=== PATIENT | female | born 1955 | race Caucasian/White ===

== ENCOUNTER 2023-12-31 10:39 | Outpatient (AMB) | payer MEDICARE, SELFPAY ==
--- NOTE | 2023-12-31 10:42 | MHC.OFFWIV ---
Intake Vital Signs 12/31/23 10:43 Height 4 ft 11 in BP 122/74 Blood Pressure Location Lt brachial Position Sitting Pulse 63 Pulse Source Pulse Oximeter Temp 96.6 F L Temp Source Temporal Artery Scan Pulse Oximetry (%) 98 Oxygen Delivery Method Room Air Intake Visit Reasons: EP Faint this morning (lobby) Intake Note: pt is here today for faint this morning Patient Tobacco Use Status: Never used Tobacco Allergies No Known Allergies Allergy (Verified 12/31/23 10:46) Do you need a note to return to daycare/school/sports/work: No HPI EP Faint this morning (lobby) HPI Details 68 yr old female presents to the office for a sick visit. Patient felt faint and weak at [employer] this morning. Also felt sweaty. After the mass, drank a glass of water and went home. Her sx have resolved. Come to the office for a checkup and evaluation. She reports, her sx have resolved except for a dull headache. Able to walk with no difficulty. Pt takes raloxifine for osteoporsosis. PFSH Social History Patient Tobacco Use Status: Never used Tobacco Physical Exam Vital Signs: Last Vital Signs Temp 96.6 F L 12/31/23 10:43 Pulse 63 12/31/23 10:43 BP 122/74 12/31/23 10:43 Pulse Ox 98 12/31/23 10:43 Oxygen Delivery Method Room Air 12/31/23 10:43 Const General: cooperative and healthy appearing Nutritional Appearance: well nourished Orientation/consciousness: patient oriented x3 Limitations: no limitations HEENT Head: Yes normal to inspection Eyes General: appearance normal, both eyes and all related structures Neck Neck: Yes normal visual inspection Chest Chest palpation & inspection: normal palpation of entire chest wall Resp Effort & Inspection: normal respiratory effort Neuro Other: No ulnar drift. General: patient oriented x3 and CN's II-XI intact bilaterally Gait exam (Neuro): Normal gait present Motor exam (neuro): 5/5 motor strength present throughout Office Procedures EKG Details: Normal Sinus Rhythm 55630-[id number], Complete Assessment & Plan Assessment & Plan (1) Dizziness: Code(s): R42 - Dizziness and giddiness Plan: EKG revd. Urinalysis revd. BW has been ordered. Pt is exhibiting no signs of a stroke (ulnar drift, weakness etc). No evidence of any cardiac event with a normal EKG. Her sx have also most largely returned to baseline. Could have been vasovagal. Reassurance and if sx recur to proceed to the ER. Orders: Orders AMB EKG-In Office Today R07.9 - Chest pain, unspecified Complete Blood Count no Diff Today R42 - Dizziness and giddiness Liver Panel Today R42 - Dizziness and giddiness Basic Metabolic Panel Today R42 - Dizziness and giddiness Thyroid Stimulating Hormone Today R42 - Dizziness and giddiness Coding Level of Care Code New Pt Level 4 (60508) Diagnoses Dizziness R42 CPT Codes EKG - CPT: 81802-[id number], Complete ([id number])
[2023-12-31 10:43] VITALS: BP 122/74; PULSE 63; TEMP 35.9; O2SAT 98
== END 2023-12-31 11:48 | disposition home or self-care (01) ==
PROVIDERS: PCP Internal Medicine; Visit Provider Internal Medicine
DX: R42 Dizziness and giddiness (principal); R07.9 Chest pain, unspecified
CPT/HCPCS: 81003; 93000; 99204

== ENCOUNTER 2023-12-31 11:34 | Outpatient (REF) | payer MEDICARE, SELFPAY ==
[2023-12-31 13:55] LABS: Hemoglobin 13.2 g/dl (12.0-16.0); Mean Corpuscular Hemoglobin 30.6 pg (27.0-33.0); Mean Corpuscular Volume 92.6 fL (80.0-98.0); Mean Platelet Volume 10.1 fL (9.4-12.3); Platelet Count 198 X10*3/uL (160-400); Red Blood Count 4.32 X10*6/uL (4.20-5.50); Red Cell Distribution Width 13.2 % (11.0-16.0); White Blood Count 3.2 X10*3/uL (4.8-10.8)
[2023-12-31 14:27] LABS: Alanine Aminotransferase 24 U/L (0-31); Albumin Level 4.4 g/dL (3.5-5.0); Alkaline Phosphatase 70 U/L (39-117); Anion Gap 12 (12-20); Aspartate Amino Transferase 26 U/L (5-31); Bilirubin Direct 0.1 mg/dL (0.0-0.5); Bilirubin Total 0.3 mg/dL (0.0-1.0); Blood Urea Nitrogen 16 mg/dL (9-16); Calcium 10.1 mg/dL (8.4-10.2); Carbon Dioxide 28 mmol/L (22-29); Chloride 104 mmol/L (96-108); Estimated Glomerular Filt Rate > 60; Glucose Random 104 mg/dL (60-115); Potassium 4.7 mmol/L (3.3-5.1); Sodium 139 mmol/L (135-145)
[2023-12-31 14:32] LABS: Thyroid Stimulating Hormone 5.47 uIU/mL (0.32-4.0)
== END 2023-12-31 11:35 | disposition home or self-care (01) ==
LOC: HO.HMGCLDS 11:34
PROVIDERS: PCP Internal Medicine; Visit Provider Internal Medicine
DX: R42 Dizziness and giddiness (principal)
CPT/HCPCS: 36415; 80048; 80076; 84443; 85027